=== PATIENT | male | born 1955 | race Caucasian/White ===

== ENCOUNTER 2023-07-30 11:43 | Emergency (ER) | payer MEDICARE, OTHER, SELFPAY ==
[2023-07-30 11:43] VITALS: BMI 24.3
[2023-07-30 11:47] VITALS: BP 168/97
--- NOTE | 2023-07-30 13:12 | ED.GENMED ---
History of Present Illness
General
Chief Complaint: Back Pain
Source: patient
Exam Limitations: none
Time Seen by Provider: 07/30/23 12:48
Nursing documentation reviewed up to this point in time: agreed with
Travel History
Have you had any contact with someone who has COVID-19?: No
Do you have any symptoms of coronavirus? Fever > 100 degrees, chills, cough, shortness of breath, sore throat, loss of taste or smell, muscle aches, or headache?: No
History of Present Illness
History of Present Illness:
67-year-old male with past medical history of previous discectomy decades ago, hypertension hyperlipidemia presenting to the emergency department today with concerns of back discomfort. Took Tylenol with slight relief at home. Had similar symptoms
a few weeks ago and had improvement after receiving Toradol Flexeril and a steroid. Denies any saddle anesthesia numbness or weakness changes in bowel or bladder function. Denies any chest pain breath abdominal pain.
Past History
Past History
ED Past Medical History: HTN, Hypercholesterolemia and Other (dvt)
ED Past Surgical History: Orthopedic
Social History
Tobacco: Non-smoker
Alcohol: None
Drug: None
Personal:
Living: with family
Review of Systems
Review of Systems
Allergies reviewed?: Yes
All Other Systems: ROS reviewed and negative except as documented in HPI and ROS
Phy Exam
Physical Exam
Physical Exam:
GENERAL: Alert , in no apparent distress
EYE: pupils equal and reactive
NECK: Supple, no significant adenopathy.
ENT: o/p clr, mmm.
CARDIAC: Regular rate and rhythm .
LUNGS: Clear breath sounds bilaterally, no acute respiratory distress, no wheezes/rales/rhonchi
ABDOMEN: Soft, without focal tenderness, no r/g, no cvat
NEUROLOGICAL: Alert and oriented, no focal neuro deficits good range of motion and strength the lower extremities walking with steady gait.
SKIN: Warm and dry, skin intact.
MUSCULOSKELETAL: No edema, well perfused.
PSYCH: Normal and appropriate interaction.
Course
Orders/Labs/Results
Orders:
Orders
07/30/23 13:08
Ketorolac [Toradol] 30 mg IM NOW STA
Prednisone [Deltasone] 50 mg PO NOW STA
07/30/23 13:22
Urinalysis Reflex To Culture Urgent
Date Specimen was Collected: 07/30/23
Time Specimen was Collected: 13:12
Vital Signs
Initial and Last Documented VS:
Initial Vital Signs
Temp Pulse Resp BP Pulse Ox
98.0 F 83 16 168/97 98
07/30/23 11:47 07/30/23 11:47 07/30/23 11:47 07/30/23 11:47 07/30/23 11:47
Last Documented Vital Signs
Temp Pulse Resp BP Pulse Ox
98.0 F 83 16 168/97 98
07/30/23 11:47 07/30/23 11:47 07/30/23 11:47 07/30/23 11:47 07/30/23 11:47
MDM/Problems Addressed
MDM/Problems Addressed:
67-year-old male presenting to the emergency department today with concerns of back discomfort. Has had intermittent back pain does have a history of chronic back issues. Here there is no red flag symptoms patient generally well-appearing no acute
distress vital signs normal other than elevated blood pressure urinalysis without acute findings. Patient started on steroid as well as Toradol and was walking steady gait no distress at time of discharge. He was written for muscle relaxer as he
said that at night he seems to have muscle spasm. Otherwise stable for outpatient follow-up return precautions given.
*Critical Care Note
Total Time (30-74mins, 75-104mins- exclusive of procedures): Not Applicable
ED Attending Note
-
Portions of this chart may have been created with voice recognition software.� Occasional wrong word or��sound alike� substitutions may have occurred due to the inherent limitations of voice recognition software.
Discharge Plan
Departure
Patient Disposition: Home (Routine Discharge)
Date of Disposition: 07/30/23
Time of Disposition: 13:12
Patient with high blood pressure during this ER visit?: No
Condition: Good
Covid-19: Not Applicable
Discharge Problem:
Back pain
Instructions: Low Back Pain (DC)
Prescriptions:
New
cyclobenzaprine 10 mg tablet
10 mg PO HS PRN (Reason: muscle spasm) Qty: 7 0RF
prednisone 20 mg tablet
40 mg PO DAILY 4 Days Qty: 8 0RF
No Action
cyclobenzaprine 10 mg Tablet
10 mg PO HS PRN (Reason: muscle spasm) Qty: 10 0RF
prednisone 50 mg Tablet
50 mg PO DAILY Qty: 5 0RF
lidocaine 5 % adhesive patch,medicated
1 patch topical DAILY PRN (Reason: PAIN) Qty: 15 0RF
Referrals:
Randal Cr MD [Active] - Follow up in 5-7 days
Moises Magaña DO [Family Provider] -
Activity Restrictions/Additional Instructions:
You came to the emergency department today with concerns of back pain. Please take the prednisone 40 mg once daily for the next 4 days as well as the muscle relaxer 1 tab at night as needed to loosen your back. You can also take Motrin and Tylenol
for symptoms as well. Please follow close with the back doctor. Return to the emergency department for any worsening, new or concerning symptoms.
Interventions
Interventions:
*Risk Screen - Suicide Last Done: 07/30/23 13:05
*General Assessment Last Done: 07/30/23 13:05
*Neglect/Abuse Screening Last Done: 07/30/23 13:05
*ED COVID-19 Vaccine History Last Done: 07/30/23 11:47
*Nursing Disposition Last Done: 07/30/23 14:06
ED-Musculoskeletal Assessment Last Done: 07/30/23 13:05
Discharge Date and Time
Discharge Date/Time: 07/30/23 14:09
[2023-07-30] MEDS: TORADOL 30 MG IM (13:21)
[2023-07-30] MEDS: DELTASONE 50 MG PO (13:21)
[2023-07-30 13:34] LABS: Urine Albumin Negative (Neg - Trace); Urine Bilirubin Negative (Negative); Urine Character Clear (Clear); Urine Color Yellow; Urine Glucose Negative (Negative); Urine Ketone Negative (Negative); Urine Leukocyte Negative (Negative); Urine Nitrite Negative (Negative); Urine Occult Blood Negative (Negative); Urine Urobilinogen Negative (Neg - 1+)
== END 2023-07-30 14:09 | disposition home or self-care (01) ==
LOC: EMR 11:43
PROVIDERS: Physician Assistant; EMERGENCY PHYSICIAN Emergency Medicine; FAMILY PHYSICIAN Orthopaedic Surgery
DX: M54.9 Dorsalgia, unspecified (principal); I10 Essential (primary) hypertension; E78.00 Pure hypercholesterolemia, unspecified; Z86.718 Personal history of other venous thrombosis and embolism
CPT/HCPCS: 99282; 96372; 81003

== ENCOUNTER → 2023-10-16 08:24 | Outpatient (REF) | payer MEDICARE, OTHER, SELFPAY | LOC: HWRCS 08:24 | PROVIDERS: ATTENDING PHYSICIAN Internal Medicine Cardiovascular Disease; FAMILY PHYSICIAN Physician Assistant Medical | DX: I10 Essential (primary) hypertension (principal) | CPT/HCPCS: 93306 ==

== ENCOUNTER → 2024-05-24 16:30 | Outpatient (REF) | payer MEDICARE, OTHER, SELFPAY ==
[2024-05-24 17:49] LABS: % Basophils 0.4 % (0-2); % Eosinophils 3.1 % (0-6); % Immature Granulocytes 0.3 % (0-0.5); % Lymphocytes 26.8 % (20.5-51.1); % Monocytes 9.4 % (1.7-9.3); Absolute Eosinophils 0.2 10^3/uL (0-0.7); Absolute Lymphocytes 1.8 10^3/uL (1.2-3.4); Absolute Monocytes 0.6 10^3/uL (0.1-0.6); Absolute Neutrophils 4.1 10^3/uL (1.4-6.5); Hematocrit 42.2 % (39.0-52.0); Hemoglobin 14.6 g/dL (13.0-18.0); Mean Corp Hgb Conc. 34.6 g/dL (33.0-37.0); Mean Corpuscular Hgb 33.1 pg (27.0-31.0); Mean Corpuscular Volume 95.7 fL (80.0-94.0); Mean Platelet Volume 10.5 fL (7.4-10.4); Nucleated Red Blood Cells % 0 % (-); Platelet Count 192 10^3/uL (130-400); Red Blood Cell Count 4.41 10^6/uL (4.70-6.10); Red Cell Dist. Width 12.7 % (11.5-14.5); White Blood Cell Count 6.8 10^3/uL (4.8-10.8)
[2024-05-24 18:05] LABS: Blood Urea Nitrogen 19 mg/dl (9-20); Calcium 9.3 mg/dl (8.4-10.2); Carbon Dioxide 32 mmol/L (22-30); Chloride 99 mmol/L (98-107); Glucose 102 mg/dl (70-99); Potassium 3.9 mmol/L (3.5-5.1); Sodium 140 mmol/L (135-145); eGFR > 60.00
== END ==
LOC: REG 16:30
PROVIDERS: ATTENDING PHYSICIAN Orthopaedic Surgery Hand Surgery; FAMILY PHYSICIAN Physician Assistant Medical
DX: Z01.818 Encounter for other preprocedural examination (principal)
CPT/HCPCS: 36415; 80048; 85025; 93005

== ENCOUNTER → 2024-07-17 10:43 | Outpatient (REF) | payer MEDICARE, OTHER, SELFPAY | LOC: RAD 10:43 | PROVIDERS: ATTENDING PHYSICIAN Internal Medicine | DX: R05.3 Chronic cough (principal) | CPT/HCPCS: 71046 ==